=== PATIENT | male | born 1980 | race Caucasian/White ===

== ENCOUNTER 2017-11-17 12:07 | Outpatient (CLI) | payer OTHER ==
--- NOTE | 2017-11-17 13:07 | XRAY Report ---
DATE OF SERVICE: 11/17/2017 TWO VIEW CHEST: 11/17/2017 COMPARISON: None. INDICATION: Pneumonia, unspecified. TECHNIQUE: Two views of the chest. FINDINGS: There is mild cardiomegaly. Lungs appear clear without pneumothorax or pleural effusion. IMPRESSION: MILD CARDIOMEGALY. OTHERWISE, NEGATIVE CHEST. TD: 11/17/2017 14:06 [facility]ENTERCharleen
== END 2017-11-17 12:08 | disposition home or self-care (01) ==
LOC: DI 12:07
PROVIDERS: ATTEND Specialist
DX: I51.7 Cardiomegaly (principal)
CPT/HCPCS: 71046

== ENCOUNTER 2017-11-23 07:54 | Outpatient (CLI) | payer OTHER ==
[2017-11-23 08:49] LABS: CREATININE 0.9 mg/dL (0.6-1.2)
[2017-11-23] MEDS ORDERED: IOPAMIDOL-300 100 ML VIAL ONE (09:01)
[2017-11-23] MEDS ORDERED: IOPAMIDOL-300 100 ML VIAL IVP ONE (10:09)
--- NOTE | 2017-11-23 11:03 | CARDIAC PROCEDURE NOTE ---
DATE OF SERVICE: 11/23/2017 Physician: KING Jalloh DATE OF SERVICE: 11/23/2017 PROCEDURE: Cardiac treadmill stress test. PROCEDURE SYMPTOMS: Syncope and chest pain. CARDIAC RISK FACTORS: None. PREVIOUS CARDIAC PROCEDURES: None. CLINICAL HISTORY: A 37-year-old male without known coronary artery disease. INITIAL RESTING VITAL SIGNS: Blood pressure 142/80, heart rate 87. Height 79 inches, weight 340 pounds. BMI 38.4. PROCEDURE AND FINDINGS: Patient identity and date verified, consent signed. The patient performed treadmill exercise using a Saeid protocol completing 8 minutes, 37 seconds and completing an estimated workload of 10.1 metabolic equivalents. Maximal blood pressure was 198/88 with a heart rate of 140 beats per minute or 77% of maximum predicted heart rate for age. Blood pressure response to exercise was within normal limits. The patient stopped because of getting short of air. He also had a paroxysmal cough. Resting ECG demonstrated normal sinus rhythm with no abnormality. Maximum ST segment depression was less than 0.5 and upsloping. There was rare PAC ectopy. The patient reported mild chest pain in the bilateral lateral chest. FINAL IMPRESSION 1. Adequate test at 77% of maximal predicted heart rate for age 2. Negative stress electrocardiogram for ischemia by electrocardiographic criteria. 3. Nondiagnostic stress test clinically for angina. 4. Rare PACs. 5. [employer] functional class 1. TD: 11/23/2017 12:01
[2017-11-23 17:01] VITALS: BP 142/80
--- NOTE | 2017-11-23 18:05 | CT Report ---
DATE OF SERVICE: 11/23/2017 CT CHEST WITH CONTRAST: 11/23/2017 CLINICAL INDICATION: Syncope, asthma. TECHNIQUE: Axial CT images of the chest were obtained with 80 mL of Isovue 300 intravenously. In accordance with CT protocol optimization, one or more of the following dose reduction techniques were utilized for this exam: Automated exposure control, adjustment of mA and/or KV based on patient size, or use of iterative reconstructive technique. Comparison is made to chest x-ray of 11/17/2017. The heart and great vessels are unremarkable. Residual thymic tissue is noted in the anterior mediastinum. No hilar or mediastinal lymphadenopathy is present. The lungs are clear. No effusion or pneumothorax is present. Limited evaluation of upper abdominal structures demonstrates fatty infiltration of the liver. The adrenal glands are unremarkable. IMPRESSION: Residual thymic tissue in the anterior mediastinum. Otherwise, normal CT of the chest with contrast. TD: 11/23/2017 19:04
== END 2017-11-23 07:55 | disposition home or self-care (01) ==
LOC: DI 07:54
PROVIDERS: ATTEND Specialist
DX: R55 Syncope and collapse (principal); R07.9 Chest pain, unspecified; J45.909 Unspecified asthma, uncomplicated
CPT/HCPCS: 36415; 71260; 82565; 93017; Q9967

== ENCOUNTER 2017-11-23 07:56 | Outpatient (CLI) | payer OTHER | END 2017-11-23 07:57 | disposition home or self-care (01) | LOC: DI 07:56 | PROVIDERS: ATTEND Specialist | DX: R55 Syncope and collapse (principal); R07.9 Chest pain, unspecified; J45.909 Unspecified asthma, uncomplicated | CPT/HCPCS: 93017 ==

== ENCOUNTER 2017-12-03 13:06 | Outpatient (CLI) | payer OTHER ==
[2017-12-03 14:19] LABS: ABG PH 7.46 (7.35-7.45)
[2017-12-03 14:20] LABS: ABG BASE EXCESS 1.3 mmol/L (-2.0-3.0); ABG HCO3 24.6 mmol/L (22.0-26.0); ABG OXYGEN SATURATION 95 % (94-98); ABG PCO2 35 mmHg (34-45); ABG PO2 67 mmHg (80-100); ABG TCO2 25.7 MMOL/L (21.0-29.0); ALLEN TEST POSITIVE
[2017-12-03] MEDS ORDERED: ALBUTEROL NEB 2.5 MG/3 ML INH ONE (15:00)
== END 2017-12-03 13:07 | disposition home or self-care (01) ==
LOC: RT 13:06
PROVIDERS: ATTEND Specialist
DX: R07.9 Chest pain, unspecified (principal); J45.909 Unspecified asthma, uncomplicated; R05 Cough
CPT/HCPCS: 36600; 82803; 94060; 94729; J7613

== ENCOUNTER 2018-01-01 09:45 | Outpatient (CLI) | payer OTHER | END 2018-01-01 09:46 | disposition home or self-care (01) | LOC: SC 09:45 | PROVIDERS: ATTEND Internal Medicine Pulmonary Disease | DX: G47.30 Sleep apnea, unspecified (principal); G47.10 Hypersomnia, unspecified; R06.83 Snoring | CPT/HCPCS: 99203; 99212 ==